=== PATIENT | male | born 1995 | race African-American/Black ===

== ENCOUNTER 2016-11-12 21:06 | Emergency (ER) | payer MEDICAID ==
[2016-11-12 21:40] LABS: BASOPHILS 0.2 % (0.0-2.0); EOSINOPHILS 2.1 % (0-7); HEMATOCRIT 42.8 % (42.0-54.0); HEMOGLOBIN 14.8 g/dL (13.5-17.5); IMMATURE GRANULOCYTES 0.1 % (0-5); LYMPHOCYTES 31.6 % (15-50); MCH 28.8 pg (26.0-34.0); MCHC 34.6 g/dL (31.0-37.0); MCV 83.4 fL (80.0-100.0); MEAN PLATELET VOLUME 10.8 fL (7.4-10.4); MONOCYTES 5.9 % (2-11); NEUTROPHILS 60.1 % (40-80); PLATELET COUNT 152 10x3/uL (130-400); RBC 5.13 10x6/uL (4.20-6.10); RDW 13.6 % (11.5-14.5); WBC 8.5 10x3/uL (4.8-10.8)
[2016-11-12 21:52] LABS: ALBUMIN 4.2 g/dL (3.4-5.0); ALKALINE PHOSPHATASE 79 U/L (46-116); ALT (SGPT) 15 U/L (10-68); BILIRUBIN - TOTAL 0.79 mg/dL (0.2-1.3); CALC OSMOLALITY 280 mosm/kg (275-300); CARBON DIOXIDE 28.9 mmol/L (21.0-32.0); CHLORIDE - SERUM 104 mmol/L (98-107); CREATININE - SERUM 1.1 mg/dL (0.6-1.3); GLUCOSE 76 mg/dL (74-106); POTASSIUM - SERUM 3.4 mmol/L (3.5-5.1); SODIUM 141 mmol/L (136-145); UREA NITROGEN 16 mg/dL (7-18); eGFR NON AFRICAN AMERICAN > 90 mL/min (90-120)
[2016-11-12 23:23] LABS: APPEARANCE CLEAR (CLEAR); BILIRUBIN NEGATIVE (NEGATIVE); COLOR YELLOW (YELLOW); GLUCOSE NEGATIVE (NEGATIVE); KETONE NEGATIVE (NEGATIVE); LEUKOCYTE ESTERASE NEGATIVE (NEGATIVE); NITRITE NEGATIVE (NEGATIVE); PROTEIN NEGATIVE (NEGATIVE); UROBILINOGEN NORMAL (NORMAL)
== END 2016-11-12 23:45 | disposition home or self-care (01) ==
LOC: D.ER 21:06
PROVIDERS: Emergency Medicine; Physician Assistant Medical
DX: E86.0 Dehydration (principal); A64 Unspecified sexually transmitted disease; F17.200 Nicotine dependence, unspecified, uncomplicated

== ENCOUNTER 2018-01-04 21:29 | Emergency (ER) | payer MEDICAID | END 2018-01-04 22:51 | disposition home or self-care (01) | LOC: D.ER 21:29 | DX: J45.901 Unspecified asthma with (acute) exacerbation (principal) ==

== ENCOUNTER 2018-01-21 20:13 | Emergency (ER) | payer MEDICAID ==
[~2018-01-21] VITALS: Ht 180.3 cm; Wt 88.6 kg
[2018-01-21 20:24] VITALS: BP 127/78; Ht 180.3 cm; Wt 88.6 kg
== END 2018-01-21 20:58 | disposition left against medical advice (07) ==
LOC: D.ER 20:13
DX: R06.00 Dyspnea, unspecified (principal)

== ENCOUNTER 2018-02-08 02:34 | Emergency (ER) | payer MEDICAID ==
[~2018-02-08] VITALS: Ht 180.3 cm; Wt 81.8 kg
[2018-02-08 02:38] VITALS: Ht 180.3 cm; Wt 81.8 kg
[2018-02-08 06:21] VITALS: BP 121/79
== END 2018-02-08 05:55 | disposition home or self-care (01) ==
LOC: D.ER 02:34
DX: R11.10 Vomiting, unspecified (principal); N48.89 Other specified disorders of penis